=== PATIENT | male | born 1985 ===

== ENCOUNTER 2021-12-22 18:36 | Emergency (ER) | payer SELFPAY ==
--- NOTE | 2021-12-22 21:10 | NUR ---
Patient was called to be triaged but was not present in the waiting room or outside of ER.
--- NOTE | 2021-12-22 21:40 | NUR ---
Patient was called to be triaged but was not present. PATIENT WAS NOT TRIAGED OR SEEN BY [facility].
== END 2021-12-22 21:40 | disposition left against medical advice (07) ==
LOC: ER 18:45
DX: Z53.21 Procedure and treatment not carried out due to patient leaving prior to being seen by health care provider (principal)